=== PATIENT | female | born 1985 | race Caucasian/White ===

== ENCOUNTER 2017-02-06 18:11 | Outpatient (CLI) | payer SELFPAY ==
[~2017-02-06] VITALS: Ht 160 cm; Wt 70.8 kg
[~2017-02-06 18:11] MED LIST: BENADRYL25 M1 PO; FLINTSTONES1 CTB PO; LORTAB 500 MG-71 TAB PO; MACROBID100 M3 PO; NOMEDS; NOMEDS *; PERCOCET 5/3251 EACH PO; PHENERGAN 25MG.25 M1 PO; PHENERGAN25 M3 PO; PRENATAL PLUS1 TA1 PO; ZANTAC 300300 MG PO
[2017-02-06 18:35] VITALS: BP 148/89
[2017-02-06 19:24] LABS: URINE BILIRUBIN - DIPSTICK NEGATIVE (NEG); URINE BLOOD 1+ (NEG)
[2017-02-06 19:31] LABS: AMPHETAMINES/METAMPHETAMINES NEGATIVE ng/mL (<1000)
--- NOTE | 2017-02-06 20:34 | ACUTE CARE PROGRESS NOTE (QUA) ---
Progress Notes Subjective Date 02/06/17 Time 2027 Assessment/Plan This inpt stay is expected to cross 2 MNs from start of care No Comments: This 31-year-old 5 para 2 AB 2 white female has been being seen by Dr. Tashi Crooks at [facility] clinic during this . She is 28 weeks by dates. Her last ended with an emergency classical for a placental abruption at [facility], which is why she is being followed there during this . To this point there had been no apparent problems with this . She was last seen by Dr. Crooks 2 weeks ago and has a scheduled appointment this coming week. She states that she felt the baby move this morning, but not since. This afternoon she began to have some irregular contractions and came into our labor room to be checked. Her cervix is thick and closed and there is no bleeding. heart tones were unable to be appreciated with a Doptone or monitor, and an ultrasound revealed a 28 week vertex fetus with absent heartbeat and no placental flow, consistent with demise. Intravenous fluids were given then the patient's irregular contractions have ceased. I have spoken with Dr. Leni Resendiz at [facility], who agrees to manage the patient's situation. She is being discharged and will be transported to [facility] by her mother. at 203
--- NOTE | 2017-02-07 14:14 | RADIOLOGY REPORT PS360 ---
US PREG [id number] COMPARISON: Ultrasound to 2016 HISTORY: Difficulty hearing heart tones TECHNIQUE: Transabdominal ultrasound FINDINGS: There is no heart detected and there is no cord flow detected. There is no movement. The BPD measures 6.87 cm equaling 27 weeks and 5 days. Abdominal circumference is 22.82 cm equaling 27 weeks and 2 days.. IMPRESSION: Apparent redding otherwise suggest clinical correlation and confirmation with beta hCG values
== END 2017-02-06 20:50 | disposition home or self-care (01) ==
LOC: OBOUT 18:11 → OB 18:12 → OBOUT 20:50
PROVIDERS: Obstetrics & Gynecology
DX: O60.03 Preterm labor without delivery, third trimester (principal); Z3A.28 28 weeks gestation of pregnancy